=== PATIENT | female | born 1995 | race Caucasian/White ===

== ENCOUNTER 2022-10-16 13:22 | Outpatient (CLI) | payer OTHER, SELFPAY ==
[2022-10-16 15:32] LABS: Cholesterol* 186 mg/dL (90-199); Triglycerides* 67 mg/dL (40-149)
[2022-10-16 15:33] LABS: HDL Cholesterol* 89 mg/dL (>=50); LDL Cholesterol Calculated 84 mg/dL (<100)
== END 2022-10-16 13:23 | disposition home or self-care (01) ==
LOC: NFLDREF 13:22
PROVIDERS: Visit Provider Obstetrics & Gynecology
DX: Z01.419 Encounter for gynecological examination (general) (routine) without abnormal findings (principal); Z13.6 Encounter for screening for cardiovascular disorders
CPT/HCPCS: 80061

== ENCOUNTER 2024-09-27 15:54 | Outpatient (CLI) | payer OTHER, SELFPAY ==
--- NOTE | 2024-09-27 16:00 | CRLHL7_ITS ---
For Patients: As a result of the Century Cures Act, medical imaging exams and procedure reports are released immediately into your electronic medical record. You may view this report before your referring provider. If you have questions, please contact your health care provider. INDICATION: Check viability and dates TECHNIQUE: Transabdominal scanning was performed. COMPARISON: None FINDINGS: There is a living IUP with gestational age of 9 weeks 5 days by today`s crown-rump length and EDC of 04/27/2025. EDC based on today`s crown-rump length is 04/27/2025. LMP is unknown. The embryonic heart rate is measured at 180 beats per minute. The placenta is not yet formed. A 1.9 x 0.9 x 0.8 cm subchorionic hemorrhage is noted. The right ovary is not visualized. The left ovary measures 3.5 x 2.6 x 2.6 cm and contains a corpus luteum cyst. No adnexal mass or free fluid is apparent. IMPRESSION: 1. Living IUP with gestational age of 9 weeks 5 days by today`s crown-rump length and EDC of 04/27/2025. 2. 1.9 x 0.9 x 0.8 cm subchorionic hemorrhage. Dictated by Claude Nino MD @ 09/28/2024 5:56:58 AM (Electronically Signed)
== END 2024-09-27 15:55 | disposition home or self-care (01) ==
LOC: US 15:55
PROVIDERS: Visit Provider Registered Nurse
DX: Z34.91 Encounter for supervision of normal pregnancy, unspecified, first trimester (principal); O20.9 Hemorrhage in early pregnancy, unspecified; Z3A.09 9 weeks gestation of pregnancy
CPT/HCPCS: 76801; 76817; 82565; 82570; 83021; 84156; 84450; 84460; 84520; 86592; 86703; 86704; 86706; 86762; 86787; 86803; 86850; 86900; 86901; 87086; 87340

== ENCOUNTER 2024-12-09 08:19 | Outpatient (CLI) | payer OTHER, SELFPAY ==
--- NOTE | 2024-12-09 08:15 | CRLHL7_ITS ---
For Patients: As a result of the Century Cures Act, medical imaging exams and procedure reports are released immediately into your electronic medical record. You may view this report before your referring provider. If you have questions, please contact your health care provider. OB ULTRASOUND SURVEY LMP: Unknown. ANH by US: 04/27/2025. GA: 20 w, 1 d. INDICATION: anatomy survey. TECHNIQUE: Real time grayscale imaging of the fetus was performed. Evaluate anatomy. Transabdominal. position: Breech. Cervix: Visualized. Technique: Transabdominal. Length of closed cervix: 3.6 cm. Placenta/cord: Posterior. Technique: Transabdominal. Placenta tip to internal OS: 2.6 cm. Umbilical Cord: 3-vessel cord. Placenta insertion: Marginal (within 2 cm of placenta edge). Amniotic Fluid: 4.3 cm SDP (greater than/equal to: 2- less than 8 cm). SURVEY: Observed Structures. Calvarium/Spine: Cerebellum: 2.06 cm, 20 w 6 d. Cisterna Magna: 8.5 mm. Nuchal Fold: 6.3 mm. Lateral Ventricle: 7.6 mm. CSP: Yes. Midline Falx: Yes. Choroid Plexus: Yes. Spine: Yes. Abdomen: Stomach: Yes. Abd Cord Insertion: See impression. Urinary Bladder: Yes. Kidneys: Yes. Diaphragm: Yes. Face: Nose/lips: Yes. Orbital view: Yes. Profile: See impression. Limbs: Upper Extremities: Yes. Lower Extremities: Yes. Hands: Yes. Feet: See impression Vascular: 4-Chamber Heart: See impression LVOT: See impression RVOT: See impression 3VV: See impression 3VTV: See impression BPD: 4.4 cm. 19 w, 2 d, 15.9 percent. HC: 17.1 cm. 19 w, 5 d, 22.1 percent. AC: 15.1 cm. 20 w, 2 d, 50.3 percent. FL: 3.2 cm. 20 w, 0 d, 39.3 percent. FL/AC ratio: 21.4 percent. HC/AC ratio: 1.1. heart rate: 134 bpm. age by this US: 20 w, 1 d. ANH by this US: 04/27/2025. EFW: 333.4 g. Weight: 12oz. Percentile by ANH: 43.9 percent. IMPRESSION: 1. Sonographic gestational age 20 weeks 1 days and sonographic due date 04/27/2025. Good correlation with dates. 2. Estimated weight 44th percentile. Abdominal circumference 50th percentile. 3. The placental cord insertion is located at the edge of the placenta. Circumvallate placenta may be present. Large placental wayne identified measures 6.4 x 4.1 x 1.5 cm. 4. Incomplete visualization of the heart, feet, profile, and abdominal cord insertion. The nuchal fold measurement is 6.3 mm. 5. Maternal medicine consultation recommended for a Level 2 ultrasound. Tom Freeman M.D. Diagnostic Radiologist [email or web address] LACIE/roro read/Dictated by: Tom Freeman MD @ 12/09/2024 12:16:00 PM (Electronically Signed)
== END 2024-12-09 08:20 | disposition home or self-care (01) ==
LOC: US 08:19
PROVIDERS: Visit Provider Obstetrics & Gynecology
DX: Z34.92 Encounter for supervision of normal pregnancy, unspecified, second trimester (principal); O35.BXX0 Maternal care for other (suspected) fetal abnormality and damage, fetal cardiac anomalies, not applicable or unspecified; O35.HXX0 Maternal care for other (suspected) fetal abnormality and damage, fetal lower extremities anomalies, not applicable or unspecified; Z3A.20 20 weeks gestation of pregnancy
CPT/HCPCS: 76805; 82570; 84156

== ENCOUNTER 2024-12-09 08:26 | Outpatient (CLI) | payer OTHER, SELFPAY | END 2024-12-09 08:27 | disposition home or self-care (01) | LOC: NFLDREF 18:33 | PROVIDERS: Visit Provider Registered Nurse | DX: O09.292 Supervision of pregnancy with other poor reproductive or obstetric history, second trimester (principal); Z3A.20 20 weeks gestation of pregnancy | CPT/HCPCS: 82570; 84156 ==

== ENCOUNTER 2025-02-03 12:01 | Outpatient (CLI) | payer OTHER, SELFPAY ==
--- NOTE | 2025-02-03 12:15 | CRLHL7_ITS ---
For Patients: As a result of the Century Cures Act, medical imaging exams and procedure reports are released immediately into your electronic medical record. You may view this report before your referring provider. If you have questions, please contact your health care provider. OB ULTRASOUND FOLLOW-UP, 02/03/2025 CLINICAL HISTORY: Follow-up placental wayne, growth, marginal cord insertion. COMPARISON: 12/12/2024, 12/09/2024, 09/27/2024. TECHNIQUE: Real time mendoza scale imaging of the fetus was performed. Transabdominal imaging performed. FINDINGS: ANH by US: 04/27/2025. GA: 28 weeks 1 day. GESTATION: Single. CERVIX: Not visualized. POSITIONING: Vertex. AMNIOTIC FLUID: 4.2 cm SDP. PLACENTA: Technique: TA. Placenta Position: Posterior. DOPPLERS: Heart Rate: 138 bpm. BIOMETRY: BPD: 6.9 cm, 27 weeks 6 days. 29.8% HC: 26.5 cm, 28 weeks 6 days. 40.4% AC: 25.5 cm, 29 weeks 5 days. 85.4% FL: 5.4 cm, 28 weeks 4 days. 45.5% FL/AC Ratio: 21.08% HC/AC Ratio: 1.04. EFW: 1335 grams, 2 lb 15 oz. Age by this US: 28 weeks 5 days. ANH by this US: 04/23/2025. Percentile by ANH: 74.1% IMPRESSION: 1. Sonographic gestational age 28 weeks 5 days and sonographic due date 04/23/2025. Sonographic age 4 days ahead of clinical age. 2. Estimated weight 74th percentile. Abdominal circumference 85th percentile. 3. The hypoechoic area within the placenta is again noted and measures 2.4 x 2.5 x 5.0 cm. This does not appear to be associated with the cord insertion. Marginal cord insertion is again noted, located 1.3 cm from the placental edge. 4. Renal pelvis measures 3.8 mm on the right and 1.8 mm on the left. Tom Freeman M.D. Diagnostic Radiologist [email or web address] Transcribed: 1:28 pm DW/Dictated by: Tom Freeman MD @ 02/03/2025 1:22:00 PM (Electronically Signed)
== END 2025-02-03 12:02 | disposition home or self-care (01) ==
LOC: US 12:03
PROVIDERS: Visit Provider Obstetrics & Gynecology
DX: O43.103 Malformation of placenta, unspecified, third trimester (principal); Z3A.28 28 weeks gestation of pregnancy
CPT/HCPCS: 76816; 86592

== ENCOUNTER 2025-03-17 07:59 | Outpatient (CLI) | payer OTHER, SELFPAY ==
--- NOTE | 2025-03-17 08:15 | CRLHL7_ITS ---
For Patients: As a result of the Century Cures Act, medical imaging exams and procedure reports are released immediately into your electronic medical record. You may view this report before your referring provider. If you have questions, please contact your health care provider. OB ULTRASOUND, 03/17/2025 CLINICAL HISTORY: Malformation of placenta, marginal CI. COMPARISON: 02/03/2025, 12/12/2024. TECHNIQUE: Real time mendoza scale imaging of the fetus was performed. Transabdominal imaging performed. FINDINGS: ANH by LMP/US: 04/27/2025. GA: 34 weeks 1 day. Gestation: Single. Cervix: Not visualized. positioning: Vertex. Amniotic fluid: 3.4 cm SDP. Placenta: Technique: TA. Placenta position: Posterior. Dopplers: Heart Rate: 144 bpm. BIOMETRY: BPD: 8.5 cm, 34 weeks 0 days. 45% HC: 30.9 cm, 34 weeks 3 days. 21% AC: 30.4 cm, 34 weeks 2 days. 59% FL: 6.6 cm, 34 weeks 1 day. 39% FL/AC Ratio: 21.81% HC/AC Ratio: 1.02 EFW: 2380 g, 5 lb 4 oz. age by this US: 34 weeks 2 days. ANH by this US: 04/26/2025. Percentile by ANH: 46% IMPRESSION: 1. Sonographic gestational age 34 weeks 2 days and sonographic due date 04/26/2025. Good correlation with dates. Normal interval growth. 2. Estimated weight 46th percentile. Abdominal circumference 59th percentile. 3. Normal appearing placenta. Tom Freeman M.D. Diagnostic Radiologist [email or web address] Transcribed: 11:57 am DW/Dictated by: Tom Freeman MD @ 03/17/2025 10:54:00 AM (Electronically Signed)
== END 2025-03-17 08:00 | disposition home or self-care (01) ==
LOC: US 08:00
PROVIDERS: Visit Provider Obstetrics & Gynecology
DX: O43.103 Malformation of placenta, unspecified, third trimester (principal); Z3A.34 34 weeks gestation of pregnancy
CPT/HCPCS: 76816

== ENCOUNTER 2025-03-31 12:21 | Outpatient (CLI) | payer OTHER, SELFPAY ==
[2025-04-01 12:56] LABS: Strep B DNA Probe Negative (Negative)
[2025-04-01 13:44] LABS: Strep B Susceptibility Needed? No
== END 2025-03-31 12:22 | disposition home or self-care (01) ==
LOC: NFLDREF 12:21
PROVIDERS: Visit Provider Obstetrics & Gynecology
DX: Z34.83 Encounter for supervision of other normal pregnancy, third trimester (principal)
CPT/HCPCS: 87081; 87653

== ENCOUNTER 2025-04-04 09:22 | Outpatient (CLI) | payer OTHER, SELFPAY ==
[2025-04-04 09:41] VITALS: BP 121/78; PULSE 100; PULSE 95; RESP 16; TEMP 36.5; O2SAT 97
--- NOTE | 2025-04-04 10:45 | CRLHL7_ITS ---
For Patients: As a result of the Century Cures Act, medical imaging exams and procedure reports are released immediately into your electronic medical record. You may view this report before your referring provider. If you have questions, please contact your health care provider. INDICATION: Decreased movements, check fluid TECHNIQUE: Ultrasound OB pelvis transabdominal. Real-time mendoza-scale imaging of the fetus was performed with color Doppler and spectral Doppler analysis of the umbilical artery without stress testing. COMPARISON: FINDINGS: Sonographic imaging demonstrates a single living intrauterine gestation. Fetus demonstrates a regular cardiac rate of 134 beats per minute. Fetus has a cephalic orientation. The placenta lies posterior. Amniotic fluid volume appears normal with an MINA of 17.7 cm. breathing movements, motion, and tone were all observed. right renal pelvis measures 7 millimeters, upper normal. IMPRESSION: Single viable intrauterine with a biophysical profile 04/14. Dictated by Nils Rdz MD @ 04/04/2025 11:31:50 AM (Electronically Signed)
--- NOTE | 2025-04-04 12:33 | PC.OBNST ---
NST Note NST Note Start: 04/04/25 09:32 Freq: ONCE Status: Active Protocol: Document 04/04/25 12:16 DALIA (Rec: 04/04/25 12:33 DALIA No Response) NST Note 2 Para (# of births) 1 EDC 04/27/25 Gestational Age In 36 Weeks & 5 Days Weeks & Days Patient Presented Decreased movement with Complaint(s) of Reactive Yes Appropriate for Yes Gestational Age JERICHO Rodriguez, JERICHOC Date 04/04/25 Reactive Yes Appropriate for Yes Gestational Age JERICHO Mullen RN Date 04/04/25 OB NST charge Yes Complete NST Note Yes via Write Note The provider's electronic signature indicates the NST is reactive/appropriate for gestational age. *Note to provider: If an addendum is required, open the patient's chart and click on the note under the Nurse/Allied Health tab.
== END 2025-04-04 12:16 | disposition home or self-care (01) ==
LOC: OB OUT 09:22 → OB 09:25
PROVIDERS: Visit Provider Obstetrics & Gynecology
DX: O36.8130 Decreased fetal movements, third trimester, not applicable or unspecified (principal); Z3A.36 36 weeks gestation of pregnancy
CPT/HCPCS: 59025; 76819; G0463

== ENCOUNTER 2025-04-20 22:47 | Inpatient (IN) | payer OTHER, SELFPAY ==
[2025-04-20 22:25] VITALS: BP 130/78; PULSE 78; RESP 16; TEMP 36.9
--- NOTE | 2025-04-20 22:48 | P.LDBA_ITS ---
Subjective History of Present Illness Date Seen: 04/20/25 Narrative: Patient is being admitted to Labor and Delivery for VTOLAC after SROM. She is a 29 year old at 39 0/7weeks gestation. Her full history and physical was dictated by Dr. EDDY on 04/13/25. Please see this for details. Patient seen this am in clinic, membranes stripped and cervix found 1.5/75% effaced. Patient states that since appointment she has been experiencing frequent uterine contractions. She did call labor and delivery with concerns of vaginal bleeding and it was recommended to present for evaluation. Upon arrival patient is grossly ruptured, clear fluid. Bleeding most consistent with dark streaks of blood. Recommended admission for delivery. Specific Issues/Plans G 2 P 1001 : Jan Son: Joel H&P by SURJIT 04/13/25 # History of preeclampsia * Daily low dose aspirin starting at 12 weeks * Baseline pre E labs: Creat 0.4, BUN 10, P/C: 0.12, Total protein: 8, AST, ALT: normal. Total protein 24 hour = 126. P/C ratio 0.13. # History of section at [place] due to nonreassuring heart tones * Desires TOLAC * % chance of success is 77.6% * 36-week growth ultrasound: EFW 46% * Consent: signed 04/13/25 #HepB non immune - low risk, declined vaccine # Varicella non immune. Rec. PP vaccine. # Thickened nuchal fold [x] Level 2 US - see below - Cancelled NIPT due to normal US at [facility] # Large placental wayne. Synechiae at uterine fundus, and marginal cord insertion. - posterior placenta, no previa, no other signs of PAS. [x ] Growth at 28 and 34 weeks. 02/03 = 28 weeks, marginal cord insertion also noted. GBS neg 03/31 Flu: up to date Covid: Completed x1. Recommended booster. Declines. Tdap: 02/17/2025 RSV:N/A FAS 12/09: EFW 333g at 44%ile, AC 50%. Marginal cord insertion noted, large placental wayne, possible circumvallate. Visualized anatomy was normal. Incomplete visualization of cardiac structures, feet, face profile and abdominal cord insertion. Level 2 12/12: EFW 365g at 46%ile, AC 39%ile. Normal visualized anatomy, including nuchal fold. No previa, posterior placenta. Synechiae noted at uterine fundus. Large placental wayne at cord insertion. 02/04/24: EFW 74.1%, AC 85.4%, cephalic, SDP 4.2 cm, hypoechoic area in placenta 5 X 2.4 X 2.4 cm. Marginal cord insertion 1.3 cm from placental edge. 03/17/25 US: Vtx. SDP 3.4 cm. EFW 2380 g, 5 lb 4 oz, 46%. BPD 45%, HC 21%, AC 59%, FL 39%. OB - Problem Based A/P Additional Plan (1) , delivered: Status: Acute Plan 1. TOLAC, consent form in chart. 2. Continuous monitoring. 3. Re check cervix in about 4 hours if unchanged would highly recommend starting IV Oxytocin. 4. GBS negative, no need for antibiotics. 5. Labs: type and screen. OB Exam Physical Exam Vital signs: Temp Pulse Resp BP 98.5 F 78 16 130/78 04/20/25 22:25 04/20/25 22:25 04/20/25 22:25 04/20/25 22:25 Detailed Labor and Delivery Exam Patient Gravid: yes Dilation (cm): 2 Effacement (%): 80 Cervix position: mid Contraction Frequency: Regular Tachysystole: No Contraction intensity: Moderate Fetus (Single) Station: -1 Amniotic Membrane Status: SROM Amniotic Membrane Fluid Description: Clear Heart Rate Baseline: 120 Monitor Accelerations: Present Monitor Decelerations: None Correction Variability: Moderate (6-25)
[2025-04-20 22:50] VITALS: BP 130/72; PULSE 74
[2025-04-20 22:51] VITALS: BMI 28.9
[2025-04-20 23:51] LABS: Hematocrit 37.0 % (33.0-51.0); Hemoglobin* 12.5 gm/dL (12.0-16.0); Immature Granulocytes Pct Auto 0.6 %; Mean Corpuscular HGB Conc 34 gm/dL (32-36); Mean Corpuscular Hemoglobin 32 pg (26-34); Mean Corpuscular Volume 95 fL (80-100); RDW Coefficient of Variation % 11.8 % (11.5-15.5); Red Blood Count 3.90 m/uL (4.00-5.20); White Blood Count* 13.94 K/uL (4.50-11.00)
[2025-04-20 23:53] LABS: Immature Granulocytes Abs Auto 0.10 K/uL (0.00-0.30); Lymphocytes Absolute Auto 2.70 K/uL (0.90-2.90); Slide Review Reflex No
[2025-04-21] VITALS (43 sets, daily range): BP systolic 107–182; BP diastolic 52–127; PULSE 71–113; RESP 16–18; TEMP 36.4–36.9; O2SAT 94–99
[2025-04-21] MEDS: LACTATED RINGERS 1000 ML 1,000 ML 1200 ML IV ×2 (04:57→05:42)
[2025-04-21] MEDS: LIDOCAINE 2% (PF) 5 ML VIAL EPIDURAL (05:27)
[2025-04-21] MEDS: ROPIVACAINE 0.2% 100 ml 100 ML 12 MG EPIDURAL (05:27)
--- NOTE | 2025-04-21 05:33 | PM.ANBPRC ---
PFSH PFS Surgical History History of section ?Z98.891 - History of uterine scar from previous surgery (ICD-10) Abscess of left breast associated with (11/2021) ?O91.13 - Abscess of breast associated with (ICD-10) Social History What is your current living situation?: I presently have a place to live Problems where you live: no known problems In the past 12 months, utilities in danger of being shut off: no In past 12 months, lack of transportation kept you from medical appts, meetings, work, or getting things needed for daily living: no In the past 12 mos, have been you worried that your food would run out before you had money to buy more?: never true In the past 12 mos, the food you bought just didn't last and you didn't have money to buy more?: never true Smoking Status: Never smoker How often does anyone, including family, friends and others, physically hurt you: never How often does anyone, including family, friends and others, insult or talk down to you: never How often does anyone, including family, friends and others, threaten you with harm: never How often does anyone, including family, friends and others, scream or curse at you: never Meds Home Medications and Allergies Home Medications ?Medication ?Instructions ?Recorded ?Confirmed ?Type docosahexaenoic acid 200 mg 200 mg PO .qd 09/27/24 04/20/25 History capsule ( DHA) aspirin 81 mg tablet,delayed 81 mg PO QDAY 10/25/24 04/20/25 History release (Adult Aspirin Regimen) Allergies Allergy/AdvReac Type Severity Reaction Status Date / Time No Known Drug Allergies Allergy Verified 04/20/25 08:51 Results Labs Labs: Laboratory Results - last 24 hr 04/20/25 23:42 WBC 13.94 H RBC 3.90 L Hgb 12.5 Hct 37.0 MCV 95 MCH 32 MCHC 34 RDW Coeff of Miladys 11.8 Plt Count 305 Neut % (Auto) 69.9 Lymph % (Auto) 19.5 L Moore % (Auto) 8.2 Eos % (Auto) 1.7 Baso % (Auto) 0.1 Neut # (Auto) 9.70 H Lymph # (Auto) 2.70 Moore # (Auto) 1.10 H Eos # (Auto) 0.20 Baso # (Auto) 0.00 Abs Immat Gran (auto) 0.10 Imm/Tot Granulo (auto) 0.6 Blood Type A Positive Antibody Screen NEGATIVE Vital Signs Vital Signs: Last Vital Signs Temp 98.5 F 04/21/25 03:47 Pulse 93 04/21/25 05:31 Resp 17 04/21/25 03:47 BP 128/64 04/21/25 05:31 Pulse Ox 98 04/21/25 05:30 Weight: 76.521 kg Height: 162.56 cm Anesthesia Procedures Epidural Insertion Patient Location: OB Start Time: 05:00 Stop Time: 05:30 Start Date: 04/21/25 Stop Date: 04/21/25 Reason for Block: primary anesthetic Patient Position: sitting Performed By: Vijay Hanna Preanesthetic Checklist: IV checked, risks and benefits discussed, surgical consent, monitors and equipment checked, pre-op evaluation, timeout performed and anesthesia consent Prep: chlorhexidine gluconate Monitoring: blood pressure monitoring, child monitor, continuous pulse oximetry and heart rate Approach: midline Vertebral Space: lumbar (1-5) Needle Type: Tuohy needle Injection Technique: continuous catheter (catheter) Needle gauge: 17 Needle Length (cm): 10 cm Needle Insertion Depth (cm): 5 Catheter Gauge: 19 Catheter Type: multi-orifice Catheter at skin depth (cm): 10 Test Dose Result: negative and lidocaine 1.5% with epinephrine 1 to 200,000
--- NOTE | 2025-04-21 07:47 | P.DS_ITS ---
DS: Providers Provider Time Seen by Provider: 07:47 Date Seen: 04/21/25 Date of admission: 04/20/25 22:47 Primary care physician: Not a Local Provider Admitting Clinician: Ludmila Godinez MD Attending Physician on discharge: Xenia Gracia MD Date of Discharge: 04/21/25 DS: Diagnosis Discharge Diagnosis (1) Status post repeat low transverse section: Status: Acute Problem details: Boy, [place] (2) hemorrhage: Status: Acute Problem details: [place] (3) Care and examination of lactating mother: Status: Acute (4) Abnormal placenta: Status: Acute Problem details: [place] Exam Const: Vital Signs, click to edit/add: Vital Signs - 24 hr 04/20/25 22:25 04/20/25 22:25 04/20/25 22:50 Temperature 98.5 F Pulse Rate 78 74 Respiratory Rate 16 Blood Pressure 130/78 130/72 Pulse Oximetry 04/21/25 00:30 04/21/25 01:32 04/21/25 01:58 Temperature 98.2 F 97.9 F Pulse Rate 78 Respiratory Rate 17 18 Blood Pressure 125/73 Pulse Oximetry 04/21/25 03:47 04/21/25 05:10 04/21/25 05:12 Temperature 98.5 F Pulse Rate 93 Respiratory Rate 17 Blood Pressure Pulse Oximetry 97 04/21/25 05:14 04/21/25 05:15 04/21/25 05:20 Temperature Pulse Rate 83 Respiratory Rate Blood Pressure 135/80 Pulse Oximetry 99 97 04/21/25 05:23 04/21/25 05:25 04/21/25 05:28 Temperature Pulse Rate 85 90 95 Respiratory Rate Blood Pressure 114/65 122/68 135/70 Pulse Oximetry 97 04/21/25 05:30 04/21/25 05:31 04/21/25 05:34 Temperature Pulse Rate 93 105 H Respiratory Rate Blood Pressure 128/64 132/65 Pulse Oximetry 98 04/21/25 05:35 04/21/25 05:37 04/21/25 05:40 Temperature 98.2 F Pulse Rate Respiratory Rate 17 Blood Pressure Pulse Oximetry 97 97 04/21/25 05:42 04/21/25 05:45 04/21/25 05:49 Temperature Pulse Rate 91 86 90 Respiratory Rate Blood Pressure 129/65 140/85 H 131/57 L Pulse Oximetry 04/21/25 05:57 04/21/25 06:17 04/21/25 06:31 Temperature Pulse Rate 78 74 71 Respiratory Rate Blood Pressure 122/63 109/54 L 107/52 L Pulse Oximetry 04/21/25 06:47 04/21/25 07:03 04/21/25 07:17 Temperature Pulse Rate 88 77 110 H Respiratory Rate Blood Pressure 132/82 119/63 182/127 H Pulse Oximetry OB - DS: Summary Hospital Course Hospital Course: Sherrell is a 29 year old G [] P [] at [] weeks gestation that was admitted to the Center on 04/20/25 for []. She had an [uncomplicated/complicated] [vaginal/] delivery. She delivered a viable [male/female] . She is [breast/bottle] feeding. the patient has done well. Time Spent with Patient Time attestation: Total time spent providing and/or coordinating discharge services: Discharge Plan Discharge Date of Admission: 04/20/25 22:47 Attending Physician on Admission: Ludmila Godinez Primary Care Provider: Provider,Not a Local Discharge Medications: No Action DHA 200 mg capsule 200 mg PO .qd aspirin [Adult Aspirin Regimen] 81 mg tablet,delayed release (DR/EC) 81 mg PO QDAY Follow Up Appointments: Provider,Not a Local [Primary Care Provider, Family Practice]
[2025-04-21] MEDS: OXYTOCIN 30 unit/500 ML in NS 30 UNIT/500 ML BAG IVPB (08:42)
--- NOTE | 2025-04-21 09:48 | W.PM.OBVAGDE ---
OB Procedure Vag Delivery Mother Details Mother Details: Sherrell is a 29 year-old G2 P 1 now 2 admitted on 04/20/2025 at 10:30 p.m. at 39 Weeks, 0 Days gestation after spontaneous rupture of membranes and spontaneous onset of labor. SROM occurred at 9:42 p.m. on 04/20/2025 with clear fluid. Labor Analgesia: Epidural Pitocin: Yes: Small amount during the 2nd stage Labor onset: 04/20/2025 at 10:00 p.m.. Complete: 04/21/2025 at 7:17 a.m.. Pushin04/21/2025 at 7:20 a.m.. heart tones during second stage were: Category 2 with variable decelerations to the 90s for most of the 2nd stage. When the vertex was there was bradycardia to the 80s and a vacuum assisted vaginal delivery was considered but the patient had excellent expulsive force and delivered the infant by normal spontaneous vaginal delivery before a vacuum could be applied. At 9:05 a.m. a viable male infant delivered in vertex direct OA presentation over second-degree perineal laceration via (). The was placed on maternal abdomen. Cord was clamped and cut after a 60+ second delay. Nose and mouth were bulb suctioned. Infant weight pending. 8 at 1 minute and 8 at 5 minutes. Shoulder dystocia: No. Nuchal cord: No Placenta delivered spontaneously and complete at 9:18 a.m. with a 3 vessel cord, marginal cord insertion noted. Laceration(s): Second-degree perineal. Repaired using 3-0 Vicryl suture in the usual manner. Blood loss: 450 mL. Blood loss measurement type: Quantitative Sponge and needles counts are correct. Specimen: None Mother and were stable after delivery. Infant's name: Néstor The patient is planning on breast feeding. : 2 Para: 1 Weeks Gestation: 39 Admission Date: 04/20/25 Additional Details Amniotic Membrane Status: SROM Amniotic Membrane Rupture Date: 04/20/25 Amniotic Membrane Rupture Time: 19:42 Amniotic Membrane Fluid Description: Clear Analgesia/Anesthesia Type: Epidural Waterbirth: No Pitcoin: Yes Intrapartal Events: Labor Augmentation Labor Onset: 22:00 Complete: 07:17 Pushin:20 Heart: heart tones during second stage were [] Delivery Details Delivery Date: 04/21/25 Delivery Time: 09:05 Route of delivery: Gender: Male Infant Viability: Alive; Heart Rate Present Position at Delivery: OA 1 Minute Interval Total Score: 8 10 Minute Interval Total Score: 8 Additional Details Shoulder Dystocia: No Placenta Delivery Time: 09:18 Placental Delivery Description: Spontaneous Delivery repair: Vicryl Procedure Done: Global Blood Loss: 450 Laceration: Perineal - 2nd Degree Blood Loss Measurement Type: QBL Bakri Used: No Sponge/Need Count Correct: Yes Cord Vessel Description: 3 Vessels Event Summary Status: Mother and infant were stable after delivery. Disposition: floor
[2025-04-21] MEDS: IBUPROFEN 600 MG TABLET PO ×2 (13:17→19:19)
[2025-04-21] MEDS: ACETAMINOPHEN 500 MG TABLET 1000 MG PO ×2 (17:28→23:30)
[2025-04-21 18:32] LABS: Hematocrit 35.1 % (33.0-51.0); Hemoglobin* 12.1 gm/dL (12.0-16.0); Mean Corpuscular HGB Conc 35 gm/dL (32-36); Mean Corpuscular Hemoglobin 32 pg (26-34); Mean Corpuscular Volume 94 fL (80-100); Red Blood Count 3.73 m/uL (4.00-5.20); White Blood Count* 21.06 K/uL (4.50-11.00)
[2025-04-21 18:33] LABS: Slide Review Reflex No
[2025-04-21 18:47] LABS: Alanine Aminotransferase* 13 U/L (4-35); Aspartate Amino Transferase* 41 U/L (12-35); Creatinine* 0.5 mg/dL (0.5-1.5); Est. Creatinine Clearance* 145.94; Estimated Glomerular Filt Rate 132 ml/min
[2025-04-22 00:30] VITALS: BP 131/70; PULSE 80; RESP 16; TEMP 36.6; O2SAT 96
[2025-04-22] MEDS: IBUPROFEN 600 MG TABLET PO (03:39)
[2025-04-22 04:30] VITALS: BP 104/74; PULSE 78; RESP 16; TEMP 36.8; O2SAT 95
[2025-04-22 06:56] LABS: Hemoglobin* 11.6 gm/dL (12.0-16.0)
[2025-04-22 08:06] VITALS: BP 123/78; PULSE 74; RESP 16; O2SAT 98
--- NOTE | 2025-04-22 09:59 | P.OBPN_ITS ---
OB - PN:Subj Subjective Date Seen: 04/22/25 Interval history: Sherrell is a 29-year-old G2 now P 2-0-0-2 woman who is status post normal spontaneous vaginal delivery / successful at 39 weeks, 0 days gestation on 04/21/2025. She gave to a male . She had a second-degree perineal laceration. Since delivery, she has been diagnosed with gestational HTN given 3 BPs that were mildly elevated. She is currently treated with nifecipine ER 30 mg daily. HELLP labs were normal, aside from minimally elevated AST at 41. OB Problem List: # History of preeclampsia # History of section at [place] due to nonreassuring heart tones Desires TOLAC #HepB non immune - low risk, declined vaccine # Varicella non immune. Rec. PP vaccine. # Thickened nuchal fold Normal US at [facility] # Large placental wayne. Synechiae at uterine fundus, and marginal cord insertion. OB - PN: Obj Exam Physical Exam: Vital signs: Temp Pulse Resp BP Pulse Ox O2 Del Method 98.2 F 74 16 123/78 98 Room Air 04/22/25 04:30 04/22/25 08:06 04/22/25 08:06 04/22/25 08:06 04/22/25 08:06 04/22/25 08:06 Narrative: General: Pleasant, no acute distress Heart: Regular rate and rhythm, no murmur or gallop Lungs: Clear to auscultation bilaterally Abdomen: Soft, nontender, fundus well below umbilicus Lower extremities: No edema or erythema OB - PN: Obj Data Labs Labs: Laboratory Results - last 24 hr 04/21/25 04/22/25 18:25 06:49 WBC 21.06 H RBC 3.73 L Hgb 12.1 11.6 L Hct 35.1 MCV 94 MCH 32 MCHC 35 Plt Count 296 Creatinine 0.5 Estimated Creat Clear 145.94 Estimated GFR 132 AST 41 H ALT 13 OB - PN: A/P Delivery Assessment and Plan (1) Status post repeat low transverse section: Problem details: Jose Sr Status: Acute (2) hemorrhage: Problem details: [place] Status: Acute (3) Care and examination of lactating mother: Status: Acute (4) Abnormal placenta: Problem details: [place] Status: Acute
--- NOTE | 2025-04-22 10:16 | P.DS_ITS ---
DS: Providers Provider Date Seen: 04/22/25 Date of admission: 04/20/25 22:47 Primary care physician: Not a Local Provider Admitting Clinician: Ludmila Godinez MD Attending Physician on discharge: Celestina Lee MD Date of Discharge: 04/22/25 DS: Diagnosis Discharge Diagnosis (1) Care and examination of lactating mother: Status: Acute (2) , delivered: Status: Acute (3) Gestational hypertension without significant proteinuria, affecting puerperium: Status: Acute Exam Narrative: Exam Narrative: General: Pleasant, no acute distress Heart: Regular rate and rhythm, no murmur or gallop Lungs: Clear to auscultation bilaterally Abdomen: Soft, nontender, fundus well below umbilicus Lower extremities: Trace edema, no erythema Const: Vital Signs, click to edit/add: Vital Signs - 24 hr 04/21/25 10:31 04/21/25 10:46 04/21/25 11:01 Temperature Pulse Rate 85 78 71 Pulse Rate [Blood Pressure Cuff] Respiratory Rate Blood Pressure 133/58 L 124/68 122/60 Blood Pressure [Le ft Arm] Pulse Oximetry Oxygen Delivery Me thod 04/21/25 11:16 04/21/25 13:45 04/21/25 17:14 Temperature 98.1 F 97.6 F Pulse Rate 90 Pulse Rate [Blood Pressure Cuff] 88 74 Respiratory Rate 17 16 Blood Pressure 128/63 Blood Pressure [Le ft Arm] 126/84 141/83 H Pulse Oximetry 94 Oxygen Delivery Me thod Room Air 04/21/25 17:31 04/21/25 20:27 04/22/25 00:30 Temperature 98.0 F 97.8 F Pulse Rate Pulse Rate [Blood Pressure Cuff] 79 80 Respiratory Rate 16 16 Blood Pressure Blood Pressure [Le ft Arm] 122/78 127/75 131/70 Pulse Oximetry 96 96 Oxygen Delivery Me thod Room Air Room Air 04/22/25 04:30 04/22/25 08:06 Temperature 98.2 F Pulse Rate Pulse Rate [Blood Pressure Cuff] 78 74 Respiratory Rate 16 16 Blood Pressure Blood Pressure [Le ft Arm] 104/74 123/78 Pulse Oximetry 95 98 Oxygen Delivery Me thod Room Air Room Air OB - DS: Summary Hospital Course Hospital Course: Sherrell is a 29-year-old G2 now P 2-0-0-2 woman who is status post normal spontaneous vaginal delivery / successful at 39 weeks, 0 days gestation on 04/21/2025. She gave to a male infant. She had a second-degree perineal laceration. OB Problem List: # History of preeclampsia # History of section at [facility] due to nonreassuring heart tones Desires TOLAC #HepB non immune - low risk, declined vaccine # Varicella non immune. Rec. PP vaccine. # Thickened nuchal fold Normal US at [facility] # Large placental wayne. Synechiae at uterine fundus, and marginal cord insertion. She had an uncomplicated vaginal delivery. She delivered a viable male infant. the patient has done well. She was diagnosed yesterday with gestational hypertension without severe features; this was based on 3 mildly e levated blood pressures. HELLP labs were normal, aside from a minimally elevated AST at 41. She ultimately did not use any antihypertensives. Today, on day 1, she has no complaints. She denies any heavy bleeding. She is ambulating and urinating without difficulty. She denies pain. She requests early discharge today. [place] Infant Gender: Male Time Spent with Patient Time attestation: Total time spent providing and/or coordinating discharge services: Discharge Plan Discharge Disposition: Home, Self-Care Date of Admission: 04/20/25 22:47 Attending Provider on Discharge: Celestina Lee Primary Care Provider: Provider,Not a Local Condition: Stable Anticipated Discharge Date/Time: 04/22/25 10:23 Discharge Medications: New acetaminophen 500 mg Tablet 1,000 mg PO Q6H PRNQty: 0 0RF docusate sodium 100 mg Capsule 100 mg PO BID PRNQty: 0 0RF ibuprofen 600 mg Tablet 600 mg PO Q6H PRNQty: 0 0RF Lanolin (HPA) 100 % Cream 1 applic topical Q1H PRNQty: 0 0RF Continued DHA 200 mg capsule 200 mg PO .qd Discontinued aspirin [Adult Aspirin Regimen] 81 mg tablet,delayed release (DR/EC) 81 mg PO QDAY Discharge Orders: Discharge Order (Routine); Ordered 04/22/25 Ordered By: Celestina Lee Patient Education: OB High Blood Pressure DC, OB Over the Counter Medication Information, OB Vaginal/Breast Feeding Additional Instructions: Discharge instructions were reviewed with the patient including signs and symptoms of infection and home going medications Nothing vaginally for 6 weeks: no tampons or intercourse Do not drive while taking narcotic pain medication(s) Off Work or School for 8 weeks Symptoms to report to doctor: * Bleeding that saturates more than one pad per hour * Passing clots larger than the size of a golf ball * Pain not relieved by prescribed medication * Fever above 100.4 degrees Fahrenheit * A foul vaginal odor * Difficulty in emotions, mood, and functions * Thoughts of hurting yourself and/or * Painful, reddened area in your breast * Any drainage, redness, or tenderness in your IV/epidural site * Severe headache that doesn't improve after taking medications * Changes in vision, including temporary loss of vision, blurred vision, and/or light sensitivity * Upper abdominal pain (usually under ribs on the right side) * Decrease in urination or painful, frequent urinating * Chest pain * Shortness of breath * Tenderness or pain with redness and/swelling in the calf(s) of your leg [facility] for a BP check?on Thursday or Tuesday 04/24 or 04/25 - call to schedule Call with BP persistently greater than or equal to 140/90 Optional 2-week visit: discuss feeding concerns, review control options and screen for anxiety/depression. 6-week visit for an annual exam. consultation services are available to all mothers and babies for the first year after delivery.? To make an appointment, please call [phone]. Activity Detail: * Do not put anything in your vagina for 6 weeks. Discharge Diet: Regular Follow Up Appointments: Provider,Not a Local [Primary Care Provider, Family Practice] Forms: Patient Belongings, MyHealth Info Instructions
[2025-04-22] MEDS: DOCUSATE SODIUM 100 MG CAPSULE PO (10:40)
[2025-04-22 12:36] VITALS: BP 119/76; PULSE 78; RESP 16; O2SAT 96
== END 2025-04-22 16:45 | disposition home or self-care (01) | DRG 807 ==
LOC: OB OUT 22:47 → OB 22:47
PROVIDERS: Obstetrics & Gynecology; Absent Provider Obstetrics & Gynecology; Admitting Provider Obstetrics & Gynecology; Visit Provider Obstetrics & Gynecology
DX: O34.211 Maternal care for low transverse scar from previous cesarean delivery (principal); Z37.0 Single live birth; O13.5 Gestational [pregnancy-induced] hypertension without significant proteinuria, complicating the puerperium; O76 Abnormality in fetal heart rate and rhythm complicating labor and delivery; O70.1 Second degree perineal laceration during delivery; Z3A.39 39 weeks gestation of pregnancy
CPT/HCPCS: 01967; 36415; 82565; 84450; 84460; 85018; 85025; 85027; 86592; 86850; 86900; 86901; A9270; J2795; J7120